=== PATIENT | male | born 1955 | race Native Hawaiian/Other Pacific Islander ===

== ENCOUNTER 2021-07-17 06:45 | Inpatient (IN) | payer OTHER ==
[2021-07-17] VITALS (10 sets, daily range): BP systolic 91–150; BP diastolic 48–111; TEMP 97–98.8; Ht 182.9 cm; Wt 37.7 kg
[~2021-07-17] VITALS: Ht 182.9 cm; Wt 37.7 kg
[2021-07-17 07:12] LABS: PLATELET COUNT 259 K/uL (142-355)
[2021-07-17] MEDS ORDERED: ROSU10TA PO (07:23)
[2021-07-17] MEDS ORDERED: ASPIR-LOW81 MG PO (07:23)
[2021-07-17 07:27] LABS: POTASSIUM 3.7 mmol/L (3.6-5.2)
[2021-07-18] VITALS (14 sets, daily range): BP systolic 107–164; BP diastolic 55–98; TEMP 97.7–99.3
[2021-07-18] MEDS ORDERED: VITAMIN C1000 MG PO (12:23)
[2021-07-18] MEDS ORDERED: ZINC220 M1 PO (12:24)
[2021-07-18] MEDS ORDERED: VITAMIN D5000 UNIT PO (12:24)
[2021-07-18] MEDS ORDERED: MULTIVITAMI1 PO (12:25)
[2021-07-18] MEDS ORDERED: ASPIRIN ADULT325 MG PO (12:26)
[2021-07-18] MEDS ORDERED: COQ-1050 MG PO (12:28)
[2021-07-18] MEDS ORDERED: LEVO0.0723 PO (12:29)
[2021-07-18] MEDS ORDERED: TESTOSTERON200 MG/ML IM (12:32)
[2021-07-18] MEDS ORDERED: CIALIS5 MG PO (12:33)
[2021-07-19 00:09] VITALS: BP 117/54; TEMP 99.1
[2021-07-19 04:28] VITALS: BP 128/87; TEMP 97.7
[2021-07-19 08:49] VITALS: BP 131/90; TEMP 98.3
[2021-07-19] MEDS ORDERED: NITR0.4S SL (11:59)
[2021-07-19 20:00] VITALS: BP 96/64; TEMP 98.5
[2021-07-20] VITALS: BP 103/72; TEMP 97.6
[2021-07-20 04:00] VITALS: BP 108/77; TEMP 97.6
== END 2021-07-19 15:30 | disposition home or self-care (01) | DRG 282 ==
LOC: ED 06:45 → MED/SURG 09:45
PROVIDERS: Emergency Medicine Emergency Medical Services; ADMIT Internal Medicine; ATTEND Internal Medicine
DX: I21.4 Non-ST elevation (NSTEMI) myocardial infarction (principal); I48.91 Unspecified atrial fibrillation; I10 Essential (primary) hypertension; E78.49 Other hyperlipidemia; E03.8 Other specified hypothyroidism; M15.8 Other polyosteoarthritis; K21.9 Gastro-esophageal reflux disease without esophagitis
CPT/HCPCS: 80053; 81000; 82550; 83880; 84439; 84443; 84484; 85027; 87040; 87635; 93005; 96360; 96361; 96365; 96366; 96375; 96376; 99285; J1160; J1650; J1956; J2270; J2405; J3490; U0003

== ENCOUNTER 2022-02-05 16:44 | Emergency (ER) | payer OTHER ==
[~2022-02-05] VITALS: Ht 182.9 cm; Wt 113.4 kg
[~2022-02-05 16:44] MED LIST: ASPIR-LOW81 MG PO; ASPIRIN ADULT325 MG PO; CIALIS5 MG PO; COQ-1050 MG PO; LEVO0.0723 PO; MULTIVITAMI1 PO; NITR0.4S SL; ROSU10TA PO; TESTOSTERON200 MG/ML IM; VITAMIN C1000 MG PO; VITAMIN D5000 UNIT PO; ZINC220 M1 PO
[2022-02-05 17:23] LABS: PLATELET COUNT 201 K/uL (142-355)
[2022-02-05 17:25] LABS: POTASSIUM 3.9 mmol/L (3.6-5.2)
[2022-02-05 19:18] VITALS: BP 128/81; TEMP 97.9
== END 2022-02-05 19:18 | disposition home or self-care (01) ==
LOC: ED 16:44
PROVIDERS: Emergency Medicine Emergency Medical Services
DX: R07.89 Other chest pain (principal)
CPT/HCPCS: 36415; 80053; 83735; 83880; 84484; 85027; 85610; 93005; 99284

== ENCOUNTER 2022-03-16 15:58 | Emergency (ER) | payer OTHER ==
[~2022-03-16] VITALS: Ht 182.9 cm; Wt 117.9 kg
[2022-03-16 16:23] VITALS: BP 173/89; TEMP 97.3
== END 2022-03-16 16:30 | disposition home or self-care (01) ==
LOC: ED 15:58
DX: Z53.21 Procedure and treatment not carried out due to patient leaving prior to being seen by health care provider (principal)

== ENCOUNTER 2023-02-14 11:09 | Outpatient (CLI) | payer OTHER | END 2023-02-14 20:00 | disposition home or self-care (01) | LOC: RAD 11:09 | PROVIDERS: ATTEND Orthopaedic Surgery | DX: M25.561 Pain in right knee (principal); M25.562 Pain in left knee ==